=== PATIENT | male | born 1980 | race Caucasian/White ===

== ENCOUNTER 2019-11-19 20:36 | Emergency (ER) | payer SELFPAY ==
[2019-11-19] MEDS ORDERED: PHENYTOIN SODIUM INJ/PF 250 MG/5 ML SDV IV ONE (20:48)
[2019-11-19] MEDS ORDERED: LORAZEPAM INJ 2 MG/1 ML VIAL IV ONE (20:48)
--- NOTE | 2019-11-19 21:01 | ER Document Report ---
ED General - General Mode of Arrival: Medic Information source: Patient, Emergency Med Personnel TRAVEL OUTSIDE OF THE [place] IN LAST 30 DAYS: No - HPI Onset: Just prior to arrival Severity: None Pain Level: Denies Associated symptoms: Weakness Exacerbated by: Denies Relieved by: Denies Similar symptoms previously: No Recently seen / treated by doctor: No <ALESHA BALL JR - Last Filed: 11/20/19 02:09> <LIBBY HOGAN - Last Filed: 11/20/19 10:39> - General Stated Complaint: SEIZURES Time Seen by Provider: 11/19/19 20:48 Notes: 11/19/19 20:47 - ED Nursing Note by MARY FUNES Acct Num: [id number] : 1980 Patient Age: 39 Pt presents to the ED via EMS for CC of seizure. EMS reports that patient was being seen at [facility] for withdrawal of substance abuse. EMS reports that [facility] staff states that the patient had 4 grand mal seizures and they gave the patient 2mg of Ativan IM which caused the seizures to stop at 1945 in the left thigh. EMs state that upon their arrival patient was slightly postical with some mild confusion. EMs states that patient alertness and mentation was improving in route to the ER when the patient had a clonic seizure in the ambulance. EMS states that they seizure lasted about 30 seconds and was done before they could establish an IV and medicate the patient. EMS states that the patient had some confusion after their witness seizure but patient was alert. EMS states that they were able to place a 18G in LAC and was able to perform a blood draw. EMS states patient vitals were 138/98, 136 heart rate, 99 O2 sat, 18 RR, 129 BGL. Pt is noted to be drowsy. Pt states that he feels weak and has generalized body aches from the seizures. Pt states that his generalized body aches is a 4/5. Pt states he is also having chest pain that is a 5/5 that is substernal and characterized as throbbing. Pt states he did have epilepsy when he was younger but has not had a seizure in years. Pt placed on the monitor. Pt breathing e/u. NAD noted. my notes 39-year-old male arrives by EMS with chief complaint of new onset seizure. Patient is now postictal as I evaluated patient at 2030 hrs. patient is able to speak at my exam time and advises he knows his name where he is at and reports he had seizures as a child but not as an adult. He denies any alcoh ol use but does admit is he smokes 2 to 3 packs cigarettes daily. He denies any chest pain or mouth pain. He denies any nuchal rigidity fever chills cough or cold symptoms. Patient advises he has dry mouth and lips and would like some maria luz adelso to drink. We advised him to use ice chips until return from CT scan and if he has had no seizures may have some maria luz adelso. (ALESHA BALL JR) - Related Data Allergies/Adverse Reactions: Penicillins Allergy (Verified 11/20/19 07:47) Past Medical History - General Information source: Patient, Emergency Med Personnel - Social History Smoking Status: Current Every Day Smoker Cigarette use (# per day): Yes Chew tobacco use (# tins/day): No Smoking Education Provided: Yes Frequency of alcohol use: None Drug Abuse: None Lives with: Family Family History: Reviewed & Not Pertinent Patient has suicidal ideation: No Patient has homicidal ideation: No <ALESHA BALL JR - Last Filed: 11/20/19 02:09> Review of Systems - Review of Systems Constitutional: See HPI, Weakness EENT: No symptoms reported Cardiovascular: No symptoms reported Respiratory: No symptoms reported Gastrointestinal: No symptoms reported Genitourinary: No symptoms reported Male Genitourinary: No symptoms reported Musculoskeletal: No symptoms reported Skin: No symptoms reported Hematologic/Lymphatic: No symptoms reported Neurological/Psychological: See HPI, Weakness, Seizure <ALESHA BALL JR - Last Filed: 11/20/19 02:09> Physical Exam - General General appearance: Other - slepy but eyes are open with glased appearence - HEENT Head: Normocephalic, Atraumatic Eyes: Normal Conjunctiva: Normal Extraocular movements intact: Yes Eyelashes: Normal Pupils: PERRL Nerve palsy: No Nasal: Normal Mouth/Lips: Normal Mucous membranes: Normal Pharynx: Normal Neck: Normal - Respiratory Respiratory status: No respiratory distress Chest status: Nontender Breath sounds: Normal Chest palpation: Normal - Cardiovascular Rhythm: Regular Heart sounds: Normal auscultation Murmur: No - Abdominal Inspection: Normal Distension: No distension Bowel sounds: Normal Tenderness: Nontender Organomegaly: No organomegaly - Rectal Hemorrhoids: Other - deferred - Genitourinary Scrotum: Other - deferred - Back Back: Normal - Extremities General upper extremity: Normal inspection, Nontender, Normal color, Normal ROM, Normal temperature General lower extremity: Normal inspection, Nontender, Normal color, Normal ROM, Normal temperature, Normal weight bearing. No: Villa's sign - Neurological Neuro grossly intact: Yes Orientation: AAOx4 Friant Coma Scale Eye Opening: Spontaneous Alfredo Coma Scale Verbal: Oriented Alfredo Coma Scale Motor: Obeys Commands Friant Coma Scale Total: 15 Speech: Normal Cranial nerves: Normal Cerebellar coordination: Normal Motor strength normal: LUE, RUE, LLE, RLE - Psychological Associated symptoms: Flat affect - Skin Skin Temperature: Warm Skin Moisture: Dry <ALESHA BALL JR - Last Filed: 11/20/19 02:09> - Vital signs Vitals: Temp Resp BP Pulse Ox 99.0 F 28 H 122/97 H 96 11/19/19 21:00 11/19/19 21:00 11/19/19 21:00 11/19/19 21:00 Course - Laboratory Result Diagrams: 11/19/19 20:14 11/19/19 20:14 - Diagnostic Test Radiology reviewed: Reports reviewed - CT abdomen pelvis reveals loops of small bowel with question of enteritis.. We will have to keep an ER and follow-up tomorrow for possible transfer to [place] if symptoms resolve. - EKG Interpretation by Me EKG shows normal: Sinus rhythm Rate: Normal Rhythm: NSR <ALESHA BALL JR - Last Filed: 11/20/19 02:09> - Laboratory Result Diagrams: 11/19/19 20:14 11/19/19 20:14 - Diagnostic Test Radiology reviewed: Image reviewed <LIBBY HOGAN - Last Filed: 11/20/19 10:39> - Re-evaluation Re-evalutation: 11/20/19 10:31 Patient was turned over to me by Dr. Durbin, apparently patient at [place] with opiate withdrawal, fentanyl, developed a seizure and was brought to the hospital. He was treated with Lorazepam and placed on phenytoin. Patient states that he had epilepsy as a child but has not had a seizure since he was 20. He states that he has not had to take seizure medications in almost 20 years. I have encouraged him to continue the antiseizure medications. Patient states she has a bit of Al, he is not on IVC papers. Psychiatry, who has not seen the patient states that they are not sure why they are being consulted. I will discharge patient home to follow-up as needed. (LIBBY HOGAN) - Vital Signs Vital signs: Temp Pulse Resp BP Pulse Ox 99.0 F 20 130/94 H 97 11/19/19 21:00 11/20/19 10:00 11/20/19 09:54 11/20/19 10:00 - Laboratory Laboratory results interpreted by me: 11/19/19 11/19/19 11/19/19 20:14 20:14 20:45 WBC 14.6 H RBC 6.41 H Hgb 18.5 H Hct 54.6 H RDW 14.1 H Absolute Neuts (auto) 10.2 H Creatinine 1.41 H Est GFR (MDRD) Non-Af 57 L Glucose 132 H POC Glucose 117 H Calcium 11.1 H Total Bilirubin 1.6 H Direct Bilirubin 0.5 H AST 246 H ALT 574 H Alkaline Phosphatase 345 H Total Protein 9.1 H Urine Protein 11/20/19 05:04 WBC RBC Hgb Hct RDW Absolute Neuts (auto) Creatinine Est GFR (MDRD) Non-Af Glucose POC Glucose Calcium Total Bilirubin Direct Bilirubin AST ALT Alkaline Phosphatase Total Protein Urine Protein 30 H Critical Care Note - Critical Care Note Total time excluding time spent on procedures (mins): 90 <ALESHA BALL JR - Last Filed: 11/20/19 02:09> - Critical Care Note Comments: I turned case over at 0215 to DrDibble (ALESHA BALL JR) Discharge <ALESHA BALL JR - Last Filed: 11/20/19 02:09> <LIBBY HOGAN - Last Filed: 11/20/19 10:39> - Discharge Clinical Impression: Seizure disorder, Enteritis, LFTs abnormal, Opiate withdrawal Condition: Good Disposition: PSYCH HOSP/UNIT Additional Instructions: Will need reevaluation by mental health prior to sending patient back to [facility] Prescriptions: Phenytoin Sodium Extended [Dilantin 100 mg Capsule.er] 100 mg PO TID #90 capsule
[2019-11-19 21:04] LABS: ABSOLUTE BASOPHILS # (AUTO) 0.1 10^3/uL (0.0-0.2); ABSOLUTE EOSINOPHILS # (AUTO) 0.1 10^3/uL (0.0-0.6); ABSOLUTE LYMPHOCYTES (AUTO) 3.2 10^3/uL (0.5-4.7); ABSOLUTE NEUT (AUTO) 10.2 10^3/uL (1.7-8.2); BASOPHILS % (AUTO) 0.7 % (0-2); EOSINOPHILS % (AUTO) 0.4 % (0-6); HEMATOCRIT 54.6 % (37.9-51.0); HEMOGLOBIN 18.5 g/dL (13.5-17.0); LYMPHOCYTES % (AUTO) 21.7 % (13-45); MEAN CORPUSCULAR HEMOGLOBIN 28.9 pg (27.0-33.4); MEAN CORPUSCULAR HGB CONC 33.9 g/dL (32.0-36.0); MEAN CORPUSCULAR VOLUME 85 fl (80-97); MONOCYTES % (AUTO) 7.2 % (3-13); PLATELET COUNT 243 10^3/uL (150-450); RED BLOOD COUNT 6.41 10^6/uL (4.35-5.55); RED CELL DISTRIBUTION WIDTH 14.1 % (11.5-14.0); TOTAL CELLS COUNTED % (AUTO) 100 %; WHITE BLOOD COUNT 14.6 10^3/uL (4.0-10.5)
--- NOTE | 2019-11-19 21:04 | EKG REPORT ---
SEVERITY:- OTHERWISE NORMAL ECG - SINUS TACHYCARDIA : Confirmed by: Micheal Finch MD 19-Nov-2019 21:03:37
[2019-11-19 21:12] LABS: ALKALINE PHOSPHATASE 345 U/L (38-126); ANION GAP 18 (5-19); ASPARTATE AMINO TRANSFERASE 246 U/L (17-59); BILIRUBIN,DIRECT 0.5 mg/dL (0.0-0.4); BILIRUBIN,TOTAL 1.6 mg/dL (0.2-1.3); BLOOD UREA NITROGEN 16 mg/dL (7-20); CALCIUM 11.1 mg/dL (8.4-10.2); CARBON DIOXIDE 25 mmol/L (22-30); CHLORIDE 99 mmol/L (98-107); GLUCOSE 132 mg/dL (75-110); POTASSIUM 4.2 mmol/L (3.6-5.0); TOTAL PROTEIN 9.1 g/dL (6.3-8.2)
--- NOTE | 2019-11-19 21:37 | RADIOLOGY REPORT (SQ) ---
EXAM DESCRIPTION: XR CHEST 1 VIEW COMPLETED DATE/TME: 11/19/2019 20:49 CLINICAL HISTORY: 39 years, Male, seizure COMPARISON: None. NUMBER OF VIEWS: 1 TECHNIQUE: Portable AP upright view of the chest was obtained at 9:16 PM. LIMITATIONS: None. FINDINGS: The heart size is within normal limits. Lungs are clear. There is no evidence of pleural effusion or pneumothorax. No gross acute bony abnormality is seen. IMPRESSION: No acute abnormality as above. copyright 2010 [employer]- All Rights Reserved
--- NOTE | 2019-11-19 22:29 | RADIOLOGY REPORT (SQ) ---
EXAM DESCRIPTION: CT HEAD WITHOUT IV CONTRAST COMPLETED DATE/TME: 11/19/2019 20:49 CLINICAL HISTORY: 39 years, Male, seizure COMPARISON: None. TECHNIQUE: Noncontrast images of the brain were obtained. Images stored on PACS. All CT scanners at this facility use dose modulation, iterative reconstruction, and/or weight based dosing when appropriate to reduce radiation dose to as low as reasonably achievable (ALARA). [facility]: Dose Right [facility]: CareDose [facility]: Dose Right [facility]: Teradose 4D [facility]: [employer] LIMITATIONS: None. FINDINGS: There is no acute intracranial hemorrhage, abnormal mass effect, or major vascular territorial infarction. There is incidental cavum septum lucidum. There is no hydrocephalus. There is no evidence of extra-axial hemorrhage. The calvarium appears intact. There is an 11 mm mucus retention cyst within the left maxillary sinus floor and there is 2 mm mucosal thickening within the right maxillary sinus without air-fluid level. IMPRESSION: No acute intracranial abnormality. Incidental cavum septum lucidum is noted. There is no hydrocephalus. There is also mild maxillary sinus mucosal thickening without air-fluid level. TECHNICAL DOCUMENTATION: Quality ID # [id number]: Final reports with documentation of one or more dose reduction techniques (e.g., Automated exposure control, adjustment of the mA and/or kV according to patient size, use of iterative reconstruction technique) copyright 2011 [employer]- All Rights Reserved
--- NOTE | 2019-11-20 01:09 | RADIOLOGY REPORT (SQ) ---
CT ABDOMEN AND PELVIS WITH INTRAVENOUS CONTRAST: 11/19/2019 11:58 PM CDT HISTORY: 39-year old with elevated and abnormal liver function tests. COMPARISON: None available TECHNIQUE: Axial contiguous images were obtained from the lung bases to the proximal femurs with intravenous intravenous contrast administered. Sagittal and coronal reconstructions were also obtained and reviewed. This exam was performed according to our departmental dose-optimization program, which includes automated exposure control, adjustment of the mA and/or KV according to the patient's size and/or use of iterative reconstruction technique. FINDINGS: No focal consolidative airspace opacities are seen. No discrete pleural effusion is seen. The visualized hepatic parenchyma is unremarkable. No focal enhancing lesion is seen. The gallbladder is contracted, and demonstrates no evidence of calcified gallstones. The spleen and pancreas are normal in contour. The bilateral adrenal glands appear unremarkable. Both kidneys demonstrate no evidence of hydronephrosis. The urinary bladder is mildly distended, and appears grossly unremarkable. The stomach is moderately distended. There are multiple prominent loops of small bowel with relatively decompressed colonic loops to the level of the mid transverse colon. No obvious transition point is seen. There is mucosal thickening suggested at the splenic flexure. These findings may represent an obstructive process at the level of the transverse colon or an ileus/enteritis. No pericolonic inflammatory stranding is seen. The appendix appears unremarkable. There is no evidence of pneumoperitoneum or free fluid. The aorta and IVC appear normal in size. No significantly enlarged lymph nodes are seen in the abdomen or pelvis. Review of the bone show no evidence of any suspicious lytic or blastic lesions. IMPRESSION: There are multiple prominent loops of small bowel with decompression of the distal colon past the mid transverse colon. This could be due to enteritis or distal obstructive process. Interval follow-up is recommended.
[2019-11-20] MEDS ORDERED: LEVOFLOXACIN 750 MG/D5W RTU 750 MG/150 ML RTUPB IV ONE (02:08)
[2019-11-20] MEDS ORDERED: METRONIDAZOLE 500 MG/NS RTU 500 MG/100 ML RTUPB IV ONE (03:46)
[2019-11-20] MEDS: METRONIDAZOLE 500 MG/NS RTU 250 MG in CONTAINER,EMPTY 1 EACH IV SCH ×2 (04:02→06:50)
[2019-11-20 05:43] LABS: APPEARANCE,URINE CLEAR; BILIRUBIN,URINE NEGATIVE (NEGATIVE); COLOR,URINE AMBER; GLUCOSE, URINE NEGATIVE (NEGATIVE); KETONES,URINE NEGATIVE (NEGATIVE); LEUKOCYTE ESTERASE,URINE NEGATIVE (NEGATIVE); NITRITE,URINE NEGATIVE (NEGATIVE); PROTEIN,URINE 30 mg/dL (NEGATIVE); UROBILINOGEN,URINE NEGATIVE mg/dL (<2.0)
[2019-11-20 05:54] LABS: URINE SPECIFIC GRAVITY > 1.060
[2019-11-20 05:56] LABS: URINE AMPHETAMINES SCREEN NEGATIVE; URINE BARBITURATES SCREEN NEGATIVE; URINE BENZODIAZEPINES SCREEN NEGATIVE; URINE COCAINE SCREEN NEGATIVE; URINE METHADONE SCREEN NEGATIVE; URINE PHENCYCLIDINE SCREEN NEGATIVE
[2019-11-20 05:57] LABS: URINE MARIJUANA (THC) SCREEN UNCONFIRMED POSITIVE
[2019-11-20 10:08] VITALS: BP 130/94
[2019-11-20] MEDS ORDERED: METRONIDAZOLE 500 MG/NS RTU 250 MG in CONTAINER,EMPTY 1 EACH IV SCH (14:00)
[2019-11-21 06:36] LABS: HEPATITS B SURFACE ANTIGEN Negative (Negative)
[2019-11-22 10:59] LABS: HEPATITIS C VIRUS ANTIBODY >11.0 s/co ratio (0.0-0.9)
== END 2019-11-20 11:10 ==
LOC: ER 20:36
DX: G40.909 Epilepsy, unspecified, not intractable, without status epilepticus (principal); K52.9 Noninfective gastroenteritis and colitis, unspecified; F11.23 Opioid dependence with withdrawal; R94.5 Abnormal results of liver function studies; R41.0 Disorientation, unspecified; R53.1 Weakness; M79.10 Myalgia, unspecified site; Z88.0 Allergy status to penicillin; F17.210 Nicotine dependence, cigarettes, uncomplicated
CPT/HCPCS: 93005; 99291; 99292; 96375; 96365; 96366; 96367; 96368; 36415; 87040; 82962; 85025; 87077; 80053; 81001; 84484; 80307; 80074; 71045; 70450; 74177; 93010; J3490 ×2; J2060; J1165; J1956